=== PATIENT | male | born 1945 | race Caucasian/White ===

== ENCOUNTER 2017-01-19 15:09 | Emergency (ER) | payer OTHER ==
[~2017-01-19] VITALS: Ht 175.3 cm; Wt 95.5 kg
[~2017-01-19 15:09] MED LIST: AMLO5TAB2 PO; CHOL10008 PO; CLOP75TA3 PO; FUR20 PO; LISI-567 PO; PRAV80TA2 PO; VIT1TABL83 PO; ZYL100 PO; calcium mag zinc PO
[2017-01-19 15:15] VITALS: BP 153/101; PULSE 71; RESP 20; O2SAT 96
--- NOTE | 2017-01-19 15:53 | DRSVH ---
PROCEDURE: X-RAY CHEST ONE VIEW, PORTABLE ([id number]) INDICATIONS: chest pain TECHNIQUE: One view of the chest was acquired. COMPARISON: [facility], CR, XR CHEST 2VW, 09/08/2016, 8:33. [facility], CR , XR CHEST 1VW (PORTABLE), 01/17/2016, 9:06. FINDINGS: Surgical changes and devices: None. Lungs and pleura: No pleural effusions or pneumothorax. Lungs are clear. Small granuloma in the per iphery of the right midlung is stable compared to prior examination. Mediastinum: Mediastinal contours appear normal. Heart size is normal. Bones and chest wall: No suspicious bony lesions. Overlying soft tissues appear unremarkable. IMPRESSION: No acute cardiopulmonary disease process. Dictated by: Winifred Neal MD, PhD on 01/19/2017 at 15:50 Approved by: Winifred Neal MD, PhD on 01/19/2017 at 15:52
[2017-01-19 15:54] LABS: BASOPHILS % (AUTO) 0.6 % (0-3); EOSINOPHILS % (AUTO) 1.4 % (0-5); MONOCYTES % (AUTO) 9.7 % (4-12); Mean Corpuscular Hemoglobin 31.3 pg (27.0-35.0); Mean Corpuscular Volume 88.9 fL (81-100); Platelet Count 286 bil/L (150-400)
--- NOTE | 2017-01-19 16:05 | ED.REPORT ---
HPI-Chest Pain 40 and Over Date of Service Jan 19, 2017 ED Provider: Danis Doherty MD 71 year old male with a history of atrial fibrillation, HTN, high cholesterol, and CVA presents to the ER accompanied by his complaining of substernal chest pain vs epigastric pain onset upon awakening this morning that persisted throughout the day while at work. Currently he is asymptomatic. Associated symptom of mild nausea. Patient denies diaphoresis, fever, vomiting, and significant cardiac history. He went to urgent care earlier today where he was referred to the ER for further cardiac workup. reports that the pain has been present intermittently for days, and general malaise for the past several weeks. Patient admits to being under a lot of work-related stress due to a recent heated discussion between him and management. He stands 8 hours daily for work, and has lately been doing a lot of lifting due to prepare for their impending move to [place]. However, he does not identify any exertional component to his chest pain. Nursing Notes Stated Complaint: EPIGASTRIC PAIN, NAUSEA Chief Complaint: Chest Pain Nursing Notes Reviewed: Yes Allergies: Coded Allergies: naproxen (Verified Allergy, Mild, hives, 06/18/16) aspirin (Verified Adverse Reaction, Severe, BLEEDING, 06/18/16) Scheduled ([calcium mag zinc]) 1 TAB PO DAILY Allopurinol (Allopurinol) 100 Mg Tablet 200 MG PO BID Amlodipine (Amlodipine) 5 Mg Tablet 5 MG PO BID Cholecalciferol (Vitamin D3) (Vitamin D3) 1,000 Unit Tab.chew 1,000 UNIT PO DAILY Clopidogrel Bisulfate (Plavix) 75 Mg Tablet 75 MG PO DAILY Furosemide (Furosemide) 20 Mg Tab 20 MG PO BID Lisinopril (Lisinopril) 20 Mg Tablet 20 MG PO BID Pravastatin (Pravastatin) 80 Mg Tablet 80 MG PO HS Vit B Comp/C/FA/Iron/Vit E (Vitamin B Complex Tablet) 1 Each Tablet 1 EACH PO DAILY General Time Seen by MD: 16:04 Chief Complaint Chest pain Hx Obtained From: Patient Arrived By: Walk-in Sudden in Onset?: Yes Onset Occurred: 9 - 12 hours ago (10) Symptom Duration: Since onset Location: : Substernal Quality: Painful Severity: Current: No pain currently Severity: Maximum: Moderate Associated with: Reports: Nausea, Denies: Cough, productive, Shortness of Breath, Vomiting Similar Sx Previous: Yes Past Medical History Past Medical History Notes: PCP: Dr. Turner Past Medical History IBS High cholesterol Sleep apnea Gout Chronic back pain CVA with L sided deficits Reports: Hyperlipidemia (High cholesterol), Hypertension, Denies: COPD, Cancer, Congestive heart failure, Coronary artery disease, Diabetes mellitus Denies: Atrial fibrillation, Kidney disease, Renal failure, Renal insufficiency Past Surgical History Reports: Appendectomy Family History noncontributory Smoking History Never Smoker Social History Alcohol Use: Denies alcohol use Drug Use: Denies drug use Other Social History: Good social support, , Local resident Ambulatory Status Independent Review of Systems Constitutional: Denies: Chills, Fever Respiratory: Denies: Non-productive cough, Shortness of breath Cardiovascular: Reports: Chest pain GI: Reports: Nausea, Denies: Abdominal pain, Diarrhea, Vomiting Musculoskeletal: Denies: Extremity pain, Neck pain Skin: Denies Diaphoresis Complete sys rev & neg: except as marked. Physical Exam Initial Vital Signs Vital Signs (First) Date Time Temp Pulse Resp B/P Pulse Ox O2 Delivery O2 Flow Rate FiO2 01/19/17 15:15 37.2 71 20 153/101 96 Room Air Initial VS: Reviewed Head / Eyes: Atraumatic, Normocephalic Neck: Supple, Non-tender, Full range of motion Extremities: Vascular intact, Neuro intact, No swelling, No tenderness Skin: Warm, Dry, No cyanosis Neurologic: Alert, Oriented, Nonfocal General/Constitutional: Awake, Alert, Well appearing, Well developed, Well nourished Respiratory / Chest: Breath sounds NL, Breath sounds = bilat, No respiratory distress, No rales, No rhonchi, No wheezing, No stridor, No chest tenderness Cardiovascular: Heart rate NL, Regular rhythm, Heart sounds NL, No murmurs, Peripheral circulation NL, Pulses = bilaterally, No gross BP differential Abdomen: Soft, Non-tender, No guarding, No rebound, No distention Interpretation & Diagnostics Lab Results Interpretation Result Diagram: 01/19/17 1540 01/19/17 1540 Test 01/19/17 15:40 White Blood Count 7.7th/mm3 (3.8-10.1) Red Blood Count 5.33mil/mm3 (4.40-5.80) Hemoglobin 16.7g/dL (13.8-17.2) Hematocrit 47.4% (41.0-50.0) Mean Corpuscular Volume 88.9fL (81-100) Mean Corpuscular Hemoglobin 31.3pg (27.0-35.0) Mean Corpuscular Hemoglobin Concent 35.2% (32.0-37.0) Red Cell Distribution Width 12.4% (12.3-15.4) Platelet Count 286bil/L (150-400) Neutrophils (%) (Auto) 67.0% (40-74) Lymphocytes (%) (Auto) 21.2% (14-46) Monocytes (%) (Auto) 9.7% (4-12) Eosinophils (%) (Auto) 1.4% (0-5) Basophils (%) (Auto) 0.6% (0-3) Sodium Level 141mEq/L (134-144) Potassium Level 3.8mEq/L (3.5-5.2) Chloride Level 100mEq/L (97-108) Carbon Dioxide Level 23mmol/L (18-29) Blood Urea Nitrogen 26mg/dL (8-27) Creatinine 1.14mg/dL (0.76-1.27) Estimat Glomerular Filtration Rate 67mL/min (>59) Glucose Level 98mg/dL (60-99) Calcium Level 10.2mg/dL (8.5-10.1) Magnesium Level 2.3mg/dL (1.6-2.6) Total Bilirubin 0.6mg/dL (0.0-1.2) Aspartate Amino Transf (AST/SGOT) 25U/L (0-50) Alanine Aminotransferase (ALT/SGPT) 20U/L (0-44) Alkaline Phosphatase 69U/L (25-160) Troponin T < 0.010ug/L (0.0-0.011) Total Protein 7.8g/dL (6.4-8.4) Albumin 4.4g/dL (3.4-5.0) Hold [place] Top Tube Received (Received) ECG Interpretation ECG Interpretation: Sinus rhythm, rate 64 Old inferior infarct Old anterior infarct No changes Time: 15:45 Interpreted by: ED physician X-Ray Chest Interpretation Chest Xray Interpretation: IMPRESSION: No acute cardiopulmonary disease process. Dictated by: Winifred Neal MD, PhD on 01/19/2017 at 15:50 Approved by: Winifred Neal MD, PhD on 01/19/2017 at 15:52 View: Portable, 1 view Interpretation / Wet Read by: Interpret - Radiologist Re-Eval/Medical Decision Source of Hx: Old records Counseled Regarding: Diagnosis, Lab results Discharge & Departure Primary Impression: Chest pain Chest pain type: unspecified Qualified Code: R07.9 - Chest pain, unspecified Disposition: Home Discharge Condition All VS Reviewed: Yes Condition: Stable Patient Instructions: Chest Pain (ED) Additional Instructions: Follow-up with Dr. Turner Thursday at 2 PM this week. Take a baby aspirin daily until then. Return to the emergency department for recurrent pain that does not resolve spontaneously with rest. I recommended he not go to work until you meet with Dr. Turner Thursday. Referrals: Braulio Turner MD (PCP) Scribe Attestation Portions of this note were transcribed by Axel Diaz. I, Dr. Doherty, personally performed the history, physical exam and medical decision-making; I reviewed and confirmed the accuracy of the information in the transcribed note. Signed by: Don Rivera, 01/19/2017 and [id number] copies to: Braulio Turner MD, Kirk H MD Jan 19, 2017 16:05 AXEL DIAZ Jan 19, 2017 16:15
[2017-01-19 16:22] LABS: TROPONIN T < 0.010 ug/L (0.0-0.011)
[2017-01-19 16:30] LABS: Magnesium 2.3 mg/dL (1.6-2.6)
[2017-01-19 17:30] VITALS: BP 138/76; PULSE 60; RESP 16; O2SAT 94
[2017-02-20] MEDS ORDERED: ONDA8TAB10 PO (14:59)
[2017-02-20] MEDS ORDERED: LOSA50TA37 PO (14:59)
[2017-02-20] MEDS ORDERED: OMEP20CA11 PO (14:59)
== END 2017-01-19 17:31 | disposition home or self-care (01) ==
LOC: SED 15:09
DX: R07.9 Chest pain, unspecified (principal); R11.0 Nausea; R53.81 Other malaise; I48.91 Unspecified atrial fibrillation; I10 Essential (primary) hypertension; E78.5 Hyperlipidemia, unspecified; I69.398 Other sequelae of cerebral infarction; Z88.6 Allergy status to analgesic agent

== ENCOUNTER 2017-02-03 14:18 | Emergency (ER) | payer OTHER ==
[~2017-02-03] VITALS: Ht 175.3 cm; Wt 95.5 kg
[2017-02-03 14:27] VITALS: BP 136/85; PULSE 64; RESP 15; O2SAT 97
[2017-02-03 15:03] LABS: BASOPHILS % (AUTO) 0.5 % (0-3); EOSINOPHILS % (AUTO) 2.8 % (0-5); Mean Corpuscular Hemoglobin 31.3 pg (27.0-35.0); Mean Corpuscular Volume 89.8 fL (81-100); NEUTROPHILS % (AUTO) 64.5 % (40-74); Platelet Count 248 bil/L (150-400)
--- NOTE | 2017-02-03 15:06 | ED.REPORT ---
HPI-Chest Pain 40 and Over Date of Service Feb 03, 2017 ED Provider: Dre Wright MD Pt is a 71 year old male with a history of atrial fibrillation, hypertension, hyperlipidemia, Gout, IBS and CVA with left-sided deficits presents to the ED complaining of epigastric/chest pain that began at approx. 1000. The episode of pain lasted several hours and he describes his pain as a "prick". His symptoms are not exacerbated or relieved by anything. Patient also reports a metallic taste in his mouth earlier this morning. Associated symptoms include mild epigastric abdominal pain and nausea for the past few days. He denies exacerbation due to bending or twisting, vomiting, flatulence, hematochezia, melena. He was seen at Urgent Care earlier this week and presents to the ED for a cardiac workup. Patient denies history of gastric ulcers or regular NSAID use. The patient's states that she has noticed that he sometimes sleeps sitting upright in a recliner as he gets acid reflux when he lays flat. Nursing Notes Stated Complaint: CHEST PAIN Chief Complaint: Chest Pain Nursing Notes Reviewed: Yes Allergies: Coded Allergies: naproxen (Verified Allergy, Mild, hives, 02/03/17) aspirin (Verified Adverse Reaction, Severe, BLEEDING, 02/03/17) Scheduled ([calcium mag zinc]) 1 TAB PO DAILY Allopurinol (Allopurinol) 100 Mg Tablet 200 MG PO BID Amlodipine (Amlodipine) 5 Mg Tablet 5 MG PO BID Cholecalciferol (Vitamin D3) (Vitamin D3) 1,000 Unit Tab.chew 1,000 UNIT PO DAILY Clopidogrel Bisulfate (Plavix) 75 Mg Tablet 75 MG PO DAILY Furosemide (Furosemide) 20 Mg Tab 20 MG PO BID Lisinopril (Lisinopril) 20 Mg Tablet 20 MG PO BID Pantoprazole DR (Pantoprazole DR) 20 Mg Tablet.dr 20 MG PO DAILY Pravastatin (Pravastatin) 80 Mg Tablet 80 MG PO HS Vit B Comp/C/FA/Iron/Vit E (Vitamin B Complex Tablet) 1 Each Tablet 1 EACH PO DAILY General Time Seen by MD: 15:05 Chief Complaint Chest pain Hx Obtained From: Patient Arrived By: Walk-in Sudden in Onset?: No Symptom Duration: 1 - 4 hours Location: : Chest left: Chest right Quality: Painful Radiation: : Does not radiate Migration/Movement: Reports: None Severity: Current: Mild Severity: Maximum: Mild Associated with: Reports: Nausea Pertinent Negative: Pt denies other symptoms Recent Healthcare: No recent hospitalization, Recent doctor visit Risk Factors )( CAD Risk Stratification Hyperlipidemia Risk factors reviewed )( TAD Risk Stratification Risk factors reviewed )( PE Risk Stratification Risk factors reviewed Past Medical History Past Medical History Notes: PCP: Dr. Turner Past Medical History IBS High cholesterol Sleep apnea Gout Chronic back pain CVA with L sided deficits Reports: Hyperlipidemia, Hypertension Past Surgical History Reports: Appendectomy Family History noncontributory Smoking History Never Smoker Social History Alcohol Use: Denies alcohol use Drug Use: Denies drug use Other Social History: Good social support, , Local resident Occupation Employee Ambulatory Status Independent Review of Systems Metallic taste in mouth Constitutional: Denies: Chills, Fever Respiratory: Denies: Shortness of breath Cardiovascular: Reports: Chest pain GI: Reports: Abdominal pain, Nausea, Denies: Hematemesis, Hematochezia, Melena, Vomiting Neurologic: Denies: Change LOC Complete sys rev & neg: except as marked. Physical Exam Initial Vital Signs Vital Signs (First) Date Time Temp Pulse Resp B/P Pulse Ox O2 Delivery O2 Flow Rate FiO2 02/03/17 14:27 36.7 64 15 136/85 97 Room Air Initial VS: Reviewed Head / Eyes: Atraumatic, Normocephalic, PERRL General/Constitutional: Awake, Alert Respiratory / Chest: Atraumatic, Breath sounds NL, Breath sounds = bilat, No respiratory distress Cardiovascular: Heart rate NL, Regular rhythm, Heart sounds NL, No gallop, No murmurs, No rubs, Peripheral circulation NL, Pulses = bilaterally (Good distal pulses ) CARDIO: No calf swelling or tenderness Abdomen: Atraumatic, Soft, Non-tender, No distention Tenderness/Guarding/Rebound: Positive: Tender epigastric (Mild ) Neurologic: Oriented X3, Speech NL, No motor deficits (No changes from baseline ), No sensory deficits (No changes from baseline ), CN II - XII intact Interpretation & Diagnostics CBC and CMP unremarkable Troponin negative Lab Results Interpretation Result Diagram: 02/03/17 1445 02/03/17 1445 Test 02/03/17 14:45 White Blood Count 7.5th/mm3 (3.8-10.1) Red Blood Count 5.30mil/mm3 (4.40-5.80) Hemoglobin 16.6g/dL (13.8-17.2) Hematocrit 47.6% (41.0-50.0) Mean Corpuscular Volume 89.8fL (81-100) Mean Corpuscular Hemoglobin 31.3pg (27.0-35.0) Mean Corpuscular Hemoglobin Concent 34.9% (32.0-37.0) Red Cell Distribution Width 12.7% (12.3-15.4) Platelet Count 248bil/L (150-400) Neutrophils (%) (Auto) 64.5% (40-74) Lymphocytes (%) (Auto) 22.1% (14-46) Monocytes (%) (Auto) 10.0% (4-12) Eosinophils (%) (Auto) 2.8% (0-5) Basophils (%) (Auto) 0.5% (0-3) Sodium Level 140mEq/L (134-144) Potassium Level 3.8mEq/L (3.5-5.2) Chloride Level 101mEq/L (97-108) Carbon Dioxide Level 24mmol/L (18-29) Blood Urea Nitrogen 21mg/dL (8-27) Creatinine 1.22mg/dL (0.76-1.27) Estimat Glomerular Filtration Rate 62mL/min (>59) Glucose Level 93mg/dL (60-99) Calcium Level 9.6mg/dL (8.5-10.1) Magnesium Level 2.1mg/dL (1.6-2.6) Total Bilirubin 0.7mg/dL (0.0-1.2) Aspartate Amino Transf (AST/SGOT) 23U/L (0-50) Alanine Aminotransferase (ALT/SGPT) 22U/L (0-44) Alkaline Phosphatase 61U/L (25-160) Troponin T < 0.010ug/L (0.0-0.011) Total Protein 7.4g/dL (6.4-8.4) Albumin 4.5g/dL (3.4-5.0) Hold [place] Top Tube Received (Received) ECG Interpretation ECG Interpretation: Sinus Rhythm Rate 62 bpm Anteroseptal Q waves No acute ST changes No T wave abnormalities Inferior Q waves Time: 14:42 Interpreted by: ED physician Normal ECG Interpretation: No change from prior ECGs (01/19/2017) X-Ray Chest Interpretation Chest Xray Interpretation: IMPRESSION: Source of chest pain is not seen. Dictated by: Oneal Haynes M.D. on 02/03/2017 at 16:09 Interpretation / Wet Read by: Interpret - Radiologist Re-Eval/Medical Decision Med Decision/Clinical Course Pt is a 71 year old male with a history of atrial fibrillation, hypertension, hyperlipidemia, Gout, IBS and CVA with left-sided deficits presents to the ED complaining of epigastric/chest pain that began at approx. 1000. The episode of pain lasted several hours and he describes his pain as a "prick". His symptoms are not exacerbated or relieved by anything. Patient also reports a metallic taste in his mouth earlier this morning. Associated symptoms include mild epigastric abdominal pain and nausea for the past few days. He denies exacerbation due to bending or twisting, vomiting, flatulence, hematochezia, melena. He was seen at Urgent Care earlier this week and presents to the ED for a cardiac workup. Patient denies history of gastric ulcers or regular NSAID use. The patient's states that she has noticed that he sometimes sleeps sitting upright in a recliner as he gets acid reflux when he lays flat. Here in the emergency department the patient was afebrile w/ stable vital signs and in no apparent distress EKG was obtained and interpreted by myself as documented above. CXR: Obtained, reviewed and interpreted by myself shows no evidence of acute infiltrates, effusions or pneumothorax. Cardiac and mediastinal silhouette normal. No bony or soft tissue abnormalities. Laboratory studies including CBC and CMP were unremarkable. Troponin was negative. Patient was treated with GI cocktail and reported complete symptom resolution. Overall history and presentation seems most consistent with parents/gastritis. I am reassured by initial negative troponin and not acutely ischemic EKG given that symptoms were present for greater than 6 hours. That being said I cannot definitively rule out acute coronary syndrome. I explained this to the patient and he declines admission stating that he feels better and is reassured that this is not his heart. He has been started on pantoprazole and is advised to follow closely with his primary care doctor for outpatient stress testing. He will call first thing tomorrow to make these arrangements. I considered other causes of his chest pain including pneumonia and pneumothorax over there is no evidence thereof. Presentation is not suggestive of acute aortic dissection and no widened mediastinum on chest x-ray. No recent major pulmonary embolism risk factors, no physical exam findings suggestive of DVT. I do not feel that pulmonary embolus workup immediately indicated. Follow-up return precautions were reviewed in detail the patient was discharged in stable condition. Time of Eval: 16:35 Patient Status: Condition improved Re-Evaluation/Progress Note: Patient is rechecked. He is informed of his X-ray results, EKG results, lab results and diagnosis. All of the patient's questions are adressed. He understands and agrees with the treatment plan to discharge. Counseled Regarding: Diagnosis, Lab results, Need for follow-up, When/why to return to ED Discharge & Departure Primary Impression: Gastritis Additional Impressions: GERD (gastroesophageal reflux disease) Esophagitis presence: esophagitis presence not specified Qualified Code: K21.9 - Gastro-esophageal reflux disease without esophagitis Epigastric pain Disposition: Home Discharge Condition All VS Reviewed: Yes Condition: Stable Patient Instructions: Gastritis (ED), Gastroesophageal Reflux Disease (ED) Additional Instructions: Thank you for seeking care at the emergency room. It is difficult for us to make definitive diagnoses in the ED but we believe that you are experiencing gastritis. Our primary goal today in the ED was to evaluate you for any life-threatening conditions. Your evaluation was reassuring. You will be discharged with a prescription for Pantozol. You should call your primary doctor tomorrow to schedule a follow-up in the next 1-2 days for a recheck and a likely stress test. You should return to the ED immediately if you develop chest pain upon exertion , a different chest pain, fevers, vomiting, cough, shortness of breath, lightheadedness, weakness or any other concerning signs or symptoms. Thank you for letting us partake in your care today. Referrals: Braulio Turner MD (PCP) Don Attestation Portions of this note were transcribed by Ruperto Lujan. I, Dr. Wright personally performed the history, physical exam and medical decision-making; I reviewed and confirmed the accuracy of the information in the transcribed note. Signed by: Don Finley, 02/03/17 1830. copies to: Braulio Turner MD, Beck O MD Feb 03, 2017 15:06 RUPERTO LUJAN Feb 03, 2017 16:29
[2017-02-03 15:10] VITALS: BP 140/85; PULSE 57; RESP 16; O2SAT 96
[2017-02-03 15:26] LABS: TROPONIN T < 0.010 ug/L (0.0-0.011)
[2017-02-03 15:36] LABS: Magnesium 2.1 mg/dL (1.6-2.6)
--- NOTE | 2017-02-03 16:11 | DRSVH ---
PROCEDURE: X-RAY CHEST ONE VIEW, PORTABLE ([id number]) INDICATIONS: chest pain TECHNIQUE: One view of the chest was acquired. COMPARISON: [facility], CR, XR CHEST 1VW (PORTABLE), 01/19/2017, 15:25. [facility], CR, XR CHEST 2VW, 09/08/2016, 8:33. FINDINGS: Surgical changes and devices: None. Lungs and pleura: No pleural effusions or pneumothorax. Lungs are clear. Mediastinum: Mediastinal contours appear normal. Heart size is normal. Bones and chest wall: No suspicious bony lesions. Overlying soft tissues appear unremarkable. IMPRESSION: Source of chest pain is not seen. Dictated by: Oneal Haynes M.D. on 02/03/2017 at 16:09 Approved by: Oneal Haynes M.D. on 02/03/2017 at 16:10
[2017-02-03] MEDS ORDERED: LidocaineVisc 2%:Antacid 1:1 10 mL Syringe PO ONE (16:35)
[2017-02-03] MEDS ORDERED: PANT20TA2 PO (16:39)
[2017-02-03] MEDS ORDERED: Alum-Mag Hydrox-Simeth 30 mL Suspension PO ONE (16:50)
[2017-02-03 17:01] VITALS: BP 142/83; PULSE 55; RESP 16; O2SAT 98
[2017-02-20] MEDS ORDERED: LOSA50TA37 PO (14:59)
[2017-02-20] MEDS ORDERED: ONDA8TAB10 PO (14:59)
[2017-02-20] MEDS ORDERED: OMEP20CA11 PO (14:59)
== END 2017-02-03 16:57 | disposition home or self-care (01) ==
LOC: SED 14:18
DX: K29.70 Gastritis, unspecified, without bleeding (principal); K21.9 Gastro-esophageal reflux disease without esophagitis; R07.2 Precordial pain; I11.9 Hypertensive heart disease without heart failure; I69.998 Other sequelae following unspecified cerebrovascular disease; R53.1 Weakness; I48.91 Unspecified atrial fibrillation; E78.5 Hyperlipidemia, unspecified; Z98.890 Other specified postprocedural states; Z88.8 Allergy status to other drugs, medicaments and biological substances

== ENCOUNTER 2017-02-23 13:49 | Day surgery (SDC) | payer MEDICARE ==
[~2017-02-23] VITALS: Ht 175.3 cm; Wt 96.0 kg
[~2017-02-23 13:49] MED LIST changes: +0.9% Sodium Chloride 1,000 ML IV PRN; +LOSA50TA37 PO; +OMEP20CA11 PO; +ONDA8TAB10 PO; +PANT20TA2 PO; +Sodium Chloride LOK Flush 10 mL Syringe IV PRN; +fentaNYL-PF 50 mCg/mL 2 mL Inj IVPUSH PRN
[2017-02-23] MEDS ORDERED: Propofol 10,000 mCg/mL 20 mL Inj ONE (13:50)
[2017-02-23] MEDS ORDERED: Labetalol 5 mg/mL 20 mL Inj ONE (13:50)
[2017-02-23] MEDS ORDERED: Lidocaine PF 1% 30 mL Inj ONE (13:50)
[2017-02-23 14:19] VITALS: BP 151/90; PULSE 53; RESP 16; O2SAT 96
[2017-02-23] MEDS ORDERED: Ondansetron 2 mg/mL 2 mL Inj IVPUSH PRN (14:35)
[2017-02-23] MEDS ORDERED: MetoCLOpramide 5 mg/mL 2 mL Inj IVPUSH PRN (14:35)
--- NOTE | 2017-02-23 14:35 | PCM.HPANE ---
Patient Data Date of Service: Feb 23, 2017 Surgeon Admitting Provider: Attending Provider:Raman Loera MD Primary Care Physician:Braulio Turner MD Other Provider: Reason for Visit Epigastric Pain Ht/WT & BMI Height (Feet): 5 Height (Inches): 9 Weight (Kilograms): 96 Body Mass Index 31.00 Allergies Coded Allergies: atorvastatin (Verified Allergy, Intermediate, HEADACHES, 02/23/17) naproxen (Verified Allergy, Mild, hives, 02/23/17) aspirin (Verified Adverse Reaction, Severe, BLEEDING, 02/23/17) Past Anesthesia History Anesthesia History: Denies:: Abnormal Airway, Anesthesia Reactions, Difficult Intubation, Fam Anesthesia Reaction, Fam Malignant Hypertherm, Malignant Hyperthermia Diabetes History Hx Diabetes?: No MRSA MRSA: No Medications Blood Thinner: Plavix Last Dose Blood Thinner: Feb 16, 2017 Hypertension Medication: Yes Home Meds Incl Beta Carol Ann: No Active Scripts Pantoprazole DR 20 Mg Tablet.dr20 Mg PO DAILY 90 Days Ref 0 Prov:Dre Wright MD 02/03/17 Reported Medications Losartan Potassium 50 Mg Dsslsu71 Mg PO DAILY 02/20/17 [calcium mag zinc] No Conflict Check1 Tab PO DAILY 01/17/16 Cholecalciferol (Vitamin D3) (Vitamin D3)1,000 Unit Tab.chew1,000 Unit PO DAILY 01/17/16 Clopidogrel Bisulfate (Plavix)75 Mg Vibqav43 Mg PO DAILY 30 Days Ref 0 11/19/15 Vit B Comp/C/FA/Iron/Vit E (Vitamin B Complex Tablet)1 Each Tablet1 Each PO DAILY 11/19/15 Allopurinol 100 Mg Fiymce063 Mg PO BID 30 Days Ref 0 08/15/14 Furosemide 20 Mg Tab20 Mg PO BID 30 Days Ref 0 08/15/14 Amlodipine 5 Mg Tablet5 Mg PO BID 30 Days Ref 0 08/15/14 Pravastatin 80 Mg Xkmrqr36 Mg PO HS 30 Days Ref 0 08/15/14 Discontinued Reported Medications Ondansetron ODT 8 Mg Tab.rapdis8 Mg PO 02/20/17 Omeprazole 20 Mg Capsule.dr20 Mg PO DAILY Ref 0 02/20/17 Lisinopril 20 Mg Ahgrmm30 Mg PO BID 30 Days Ref 0 11/19/15 History History of ENT Problems?: Yes HEENT History: Positive for:: Hearing Problem Sinus Problem (seasonal allergies) Denies:: Abnormal Airway Cataracts Difficult Intubation Dysphagia Hx of Heart Problems?: Yes Cardiovascular History: Positive for:: Atrial Fibrillation Edema (mild) Hypertension Irregular Heartbeat (afib) Denies:: AICD Cardiac Surgery Chest Pain Congestive Heart Failure Heart Murmur Pacemaker Thrombophlebitis Valvular Heart Disease Hx of Respiratory Problem?: No Respiratory History: Positive for:: Dyspnea (occasional) Pneumonia Denies:: Asthma COPD Chest Surgery Cough Emphysema Hemoptysis Tuberculosis Hx Neurologic Problems?: Yes Neurological History: Positive for:: CVA (2015) Dizziness Denies:: Alzheimer's Disease Dementia Headaches Parkinson's Disease Seizures Hx of GI Problems?: Yes Gastrointestinal History: Positive for:: Diverticulitis Gastroesphageal Reflux Hiatal Hernia Denies:: Cirrhosis Gastrointestinal Bleeding Heartburn Hepatitis Rectal Bleeding Hx of Problems?: No HX of Peritoneal Dialysis: No Hx Musculoskeletal Problems?: Yes Musculoskeletal History: Positive for:: Back Injury (r/t falls) Denies:: Joint Replacement Musculoskeletal Trauma Hx of Psycho/Social Problems?: No Psycho Social History: Denies:: Anxiety Bipolar Disorder Hx Depression Suicide Attempt Hx Surgeries?: Yes (Appy) Hx Any Other Health Problems?: Yes Other History: Positive for:: Hospitalization (appendectomy, stroke) Denies:: Cancer Thyroid Disease History Blood Transfusions: Denies:: Blood Transfusions Hx Diabetes: No Hx Alcohol Use: NoHx Substance Use: No Smoking Status: Never Smoker Have You Smoked inLast 12 mo: No Stop/Bang Treated for Sleep Apnea?: Yes Do You Have a CPAP Machine?: Yes LAUREN Risk Assessment: High Risk, =/>3 Yes LAUREN Category 4 OutPt Procedure: Yes Risk Assessment Category Category 1A: Patient has history of documented sleep apnea, and HAS NOT received any narcotic, sedative or anesthesia administration during this stay. Category 1B: Patient has history of documented sleep apnea, and HAS received any narcotic , sedative or anesthesia administration during this stay Category 2: Patient has SUSPECTED Obstructive Sleep Apnea, and HAS received any narcotic , sedative or anesthesia administration during this stay. Category 3: Patient has SUSPECTED Obstructive Sleep Apnea and HAS NOT received narcotic, sedative or anesthesia administration during this stay. Category 4: Outpatient in Procedural Areas with known sleep apnea or who screen positive for High Risk via the STOP/BANG questionnaire. Exam Exam Vital Signs Vital Signs Date Time Temp Pulse Resp B/P Pulse Ox O2 Delivery O2 Flow Rate FiO2 4/10/17 14:19 53 16 151/90 96 Room Air General Appearance: Alert, Oriented X3, Cooperative HEENT/AIRWAY: MP 1, Neck Movement (OK), Mouth Opening (Wide) Lungs: Clear to Auscultation, Normal Air Movement Heart: Regular Rate/Rhythm, Normal S1, Normal S2 Additional Information left sided weakness secondary to CVA Meds/Labs/Diagnostics Diagnositcs echo reviewed Plan Impression Patient chart reviewed, patient interviewed and anesthestic plan with risks, benefits, and alternatives discussed, and informed consent obtained. NPO Status: > 8 hours ASA Physical Status: ASA3 Severe Disease Anesthetic Plan: GA, MAC Bene/Risks/Altern/Consents: Yes HP Complete Prior to Induction: Yes Ryan Garcia MD Feb 23, 2017 14:35
[2017-02-23] MEDS: Lactated Ringer's 1,000 ML IV SCH ×2 (14:42→16:11)
[2017-02-23 15:05] VITALS: BP 149/81; PULSE 60; RESP 17; O2SAT 93
--- NOTE | 2017-02-23 15:11 | PCM.ANEP1 ---
Post Anesthesia Phase 1 PACU Phase 1 Assessment Date of Service: Feb 23, 2017 Vital Signs Vital Signs Date Time Temp Pulse Resp B/P Pulse Ox O2 Delivery O2 Flow Rate FiO2 02/23/17 15:05 60 17 149/81 93 Nasal Cannula 2 02/23/17 14:19 53 16 151/90 96 Room Air Anesthetic Administered: MAC Level of Alertness: Awake, talking CORREA's with Equal Strength: Yes Pain: No Nausea or Vomiting: No Oxygen Delivery: Nasal Cannula Lungs: Normal Air Movement Summary hypertensive during procedure, labetalol given Ryan Garcia MD Feb 23, 2017 15:11
--- NOTE | 2017-02-23 15:17 | PCM.ANEP2 ---
Post Anesthesia Evaluation ASA/CMS Post Anesthesia Date of Service: Feb 23, 2017 VS in Patient's Normal Range?: Yes Resp Stable; Airway Patent?: Yes CV Function & Hydration Stable: Yes Mental Status Recovered?: Yes Pain control Satisfactory?: Yes N/V Control Satisfactory?: Yes Ryan Garcia MD Feb 23, 2017 15:17
[2017-02-23 15:20] VITALS: BP 137/82; PULSE 55; RESP 14; O2SAT 94
--- NOTE | 2017-02-24 00:45 | ENDO ---
[address] [address] ENDOSCOPY PROCEDURE PATIENT: JOSE CASIANO : 1945 MR#: [id number] ADMIT: 02/23/2017 JOB ID: [id number] DATE OF PROCEDURE: 02/23/2017 PRIMARY PROVIDER: Braulio Turner MD. PROCEDURE: Esophagogastroduodenoscopy. INDICATIONS: A 71-year-old male recently seen in urgent care for symptoms of epigastric pain of uncertain etiology. EGD was requested. EQUIPMENT: [id number]. SEDATION: Monitored anesthesia as provided by Dr. Ryan Garcia. COMPLICATIONS: None identified. PROCEDURE INFORMATION: After the risks and benefits were explained, written and verbal informed consent was obtained. The patient was brought into the endoscopy suite and placed into the left lateral decubitus position. Sedation was achieved as above. The scope introduced into the mouth through the bite block and advanced to the second portion of the duodenum. The scope was slowly withdrawn to carefully examine the mucosa for any defects or lesions. Retroflexed views were accomplished in the stomach. The stomach was decompressed. Scope was removed from the patient who tolerated the procedure well. FINDINGS: 1. Duodenum: There was some mild diffuse mucosal irritation in the proximal duodenum. The second portion appeared visually normal. I did not see any ulcers or mass lesions throughout. 2. Stomach: Mild diffuse nodular irritation/inflammation appreciated in the distal stomach, antrum, pre-pyloric region. No ulcers. No mass lesions. No outlet obstruction. Retroflexed views of the LES were unremarkable. 3. Esophagus: The squamocolumnar junction was slightly irregular, in essence demonstrating true "Z" pattern. There were, however, no signs of acute erosive features. No strictures. No mass lesions. The GEJ was judged to be at approximately 40 cm from the incisors. There was an approximately 1-2 cm sliding hiatal hernia present. Remainder of the esophagus appeared unremarkable. ENDOSCOPIC DIAGNOSES: 1. Small hiatal hernia. 2. Mild nonspecific gastroduodenopathy. RECOMMENDATIONS: 1. Helicobacter pylori serology is requested. 2. The patient is encouraged to contact our office this or Thursday for the blood test results. Certainly, if positive, standard triple therapy would be appropriate. 3. The patient should restart Plavix today. 4. No findings were really made today to account for his trip to urgent care. I have requested a HIDA scan to evaluate gallbladder function.
== END 2017-02-23 23:59 | disposition home or self-care (01) ==
LOC: END 13:49
PROVIDERS: ATTEND Internal Medicine Gastroenterology
DX: K31.89 Other diseases of stomach and duodenum (principal); K44.9 Diaphragmatic hernia without obstruction or gangrene; K21.9 Gastro-esophageal reflux disease without esophagitis; J45.909 Unspecified asthma, uncomplicated; I10 Essential (primary) hypertension; I82.509 Chronic embolism and thrombosis of unspecified deep veins of unspecified lower extremity; Z86.73 Personal history of transient ischemic attack (TIA), and cerebral infarction without residual deficits
CPT/HCPCS: 36415; 43235; 82784; J7120